=== PATIENT | male | born 1940 | race Hispanic/Latino ===

== ENCOUNTER 2022-08-23 16:01 | Emergency (ER) | payer MEDICARE ==
[~2022-08-23] VITALS: Ht 167.6 cm; Wt 56.2 kg
[2022-08-23 16:36] VITALS: O2SAT 98
== END 2022-08-23 16:55 | disposition home or self-care (01) ==
LOC: ER 16:20
DX: J44.9 Chronic obstructive pulmonary disease, unspecified (principal); Z99.81 Dependence on supplemental oxygen; I10 Essential (primary) hypertension
CPT/HCPCS: 99283

== ENCOUNTER 2022-12-25 19:59 | Emergency (ER) | payer MEDICARE ==
[~2022-12-25] VITALS: Ht 162.6 cm; Wt 54.9 kg
[~2022-12-25 19:59] MED LIST: ATORVASTATIN CA20 MG PO; ATROVENT HFA12.9 GM INH; DILTIAZEM HCL30 MG PO; ELIQUIS5 MG PO; LEVALBUTER1.25 MG/3 INH; MONTELUKAST SOD10 MG PO; MUCINEX DM ER1 EACH PO; PREDNISONE5 MG PO; SPIRIVA18 MCG INH; VITAMIN D31 GM PO; WIXELA 500-501 EACH
[2022-12-25] MEDS ORDERED: SODIUM CHLORIDE 0.9% 1000ML 1,000 ML IV STA (20:15)
[2022-12-25 20:28] LABS: BASOPHILS # (AUTO) 0.1 (0.0-0.1); BASOPHILS % 0.7 % (0.0-1.0); HEMATOCRIT 36.1 % (38.2-49.6); HEMOGLOBIN 11.3 g/dL (14.0-18.0); LYMPHOCYTES # (AUTO) 0.5 (1.0-3.2); LYMPHOCYTES % 3.2 % (18.0-39.1); MEAN CORPUSCULAR HGB CONC 31.3 g/dL (31-35); MEAN CORPUSCULAR VOLUME 83.2 fL (81-99); MONOCYTES # (AUTO) 0.3 (0.2-0.8); MONOCYTES % 2.2 % (4.4-11.3); NEUTROPHILS # (AUTO) 13.5 (2.1-6.9); NEUTROPHILS % 86.2 % (38.7-80.0); PLATELET COUNT 449 x10e3/uL (140-360); RED BLOOD COUNT 4.34 x10e6/uL (4.3-5.7); RED CELL DISTRIBUTION WIDTH 15.9 % (11.7-14.4); WHITE BLOOD COUNT 15.68 x10e3/uL (4.8-10.8)
[2022-12-25 20:47] LABS: ALBUMIN 2.9 g/dL (3.5-5.0); ALBUMIN/GLOBULIN RATIO 0.8 (0.8-2.0); CALCIUM 9.2 mg/dL (8.4-10.2); CREATININE, SERUM 1.49 mg/dL (0.72-1.25)
[2022-12-25] MEDS ORDERED: CARDIZEM30 MG PO (21:48)
[2022-12-25 22:19] VITALS: BP 118/96; O2SAT 93
== END 2022-12-25 22:10 | disposition home or self-care (01) ==
LOC: ER 20:05
DX: I95.2 Hypotension due to drugs (principal); U07.1 COVID-19; J44.9 Chronic obstructive pulmonary disease, unspecified; I50.9 Heart failure, unspecified; Z99.81 Dependence on supplemental oxygen
CPT/HCPCS: 36415; 71045; 80053; 82550; 83690; 83880; 84484; 85025; 99284; U0002; 93005

== ENCOUNTER 2024-05-04 18:25 | Emergency (ER) | payer MEDICARE ==
[~2024-05-04] VITALS: Ht 162.6 cm; Wt 61.2 kg
[~2024-05-04 18:25] MED LIST changes: +CARDIZEM30 MG PO
[2024-05-04] MEDS: OXYMETAZOLINE HCL 0.05% NAS 1 SPRAY BTL STA (20:46)
[2024-05-04 20:50] VITALS: PULSE 82; RESP 16; TEMP 98.6
[2024-05-04 20:53] VITALS: BP 145/88; PULSE 82; RESP 16; TEMP 98.6; O2SAT 95
== END 2024-05-04 20:52 | disposition home or self-care (01) ==
LOC: ER 18:30
DX: R04.0 Epistaxis (principal); R07.89 Other chest pain; J44.9 Chronic obstructive pulmonary disease, unspecified; I50.9 Heart failure, unspecified; I48.91 Unspecified atrial fibrillation; Z99.81 Dependence on supplemental oxygen; Z79.01 Long term (current) use of anticoagulants
CPT/HCPCS: 99283

== ENCOUNTER → 2024-12-03 | Outpatient (REF) | payer MEDICARE | LOC: RAD 13:50 | PROVIDERS: ATTEND Internal Medicine Critical Care Medicine | DX: R06.00 Dyspnea, unspecified (principal) | CPT/HCPCS: 71046 ==